=== PATIENT | male | born 1935 | race Caucasian/White ===

== ENCOUNTER → 2016-12-04 | Outpatient (CLI) | payer MEDICARE | END | disposition home or self-care (01) | LOC: PCVCCLINIC 13:16 | PROVIDERS: ATTEND Internal Medicine | DX: I25.10 Atherosclerotic heart disease of native coronary artery without angina pectoris (principal); I10 Essential (primary) hypertension; I25.5 Ischemic cardiomyopathy; E78.2 Mixed hyperlipidemia; J44.9 Chronic obstructive pulmonary disease, unspecified; E78.00 Pure hypercholesterolemia, unspecified; I65.29 Occlusion and stenosis of unspecified carotid artery; Z87.891 Personal history of nicotine dependence; Z79.82 Long term (current) use of aspirin; Z79.899 Other long term (current) drug therapy; Z88.0 Allergy status to penicillin; Z88.8 Allergy status to other drugs, medicaments and biological substances | CPT/HCPCS: 80061; 93005; G0463 ==

== ENCOUNTER → 2017-06-03 | Outpatient (CLI) | payer MEDICARE | END | disposition home or self-care (01) | LOC: PCVCCLINIC 10:55 | PROVIDERS: ATTEND Internal Medicine | DX: I25.10 Atherosclerotic heart disease of native coronary artery without angina pectoris (principal); I25.5 Ischemic cardiomyopathy; I10 Essential (primary) hypertension; E78.5 Hyperlipidemia, unspecified; I65.23 Occlusion and stenosis of bilateral carotid arteries; J43.1 Panlobular emphysema; Z87.891 Personal history of nicotine dependence; Z79.82 Long term (current) use of aspirin; Z79.899 Other long term (current) drug therapy | CPT/HCPCS: 80061; 93005; G0463 ==

== ENCOUNTER → 2017-12-02 | Outpatient (CLI) | payer MEDICARE | END | disposition home or self-care (01) | LOC: PCVCCLINIC 11:40 | DX: I25.10 Atherosclerotic heart disease of native coronary artery without angina pectoris (principal); I25.5 Ischemic cardiomyopathy; I10 Essential (primary) hypertension; E78.5 Hyperlipidemia, unspecified; I65.23 Occlusion and stenosis of bilateral carotid arteries; J43.1 Panlobular emphysema; Z79.82 Long term (current) use of aspirin; Z87.891 Personal history of nicotine dependence; Z88.8 Allergy status to other drugs, medicaments and biological substances | CPT/HCPCS: 80061; 93005; G0463 ==

== ENCOUNTER → 2018-12-03 | Outpatient (CLI) | payer MEDICARE ==
--- NOTE | 2018-12-03 12:30 | PCVCIMAG ---
APPROVED REPORT Study performed: 12/03/2018 11:42:53 EXAM: Comprehensive 2D, Doppler, and color-flow Echocardiogram Patient Location: Echo lab Status: routine BSA: 1.98 HR: 62 bpmBP: 158/100 mmHg Rhythm: NSR Other Information Study Quality: Good Risk Factors: Cardiac Risk Factors: HTN, Hyperlipidemia Indications CAD Cardiomyopathy Hypertension/HDD 2D Dimensions IVSd: 12.19 (7-11mm)LVOT Diam: 20.90 (18-24mm) LVDd: 50.88 mm PWd: 12.39 (7-11mm)Ascending Ao: 40.15 (22-36mm) LVDs: 46.86 (25-40mm) Left Atrium: 36.64 (27-40mm) Aortic Root: 34.31 mm LV Single Plane 4CH: 40.50 % LV Single Plane 2CH: 31.15 % Biplane EF: 37.4 % Volumes Left Atrial Volume (Systole) Single Plane 4CH: 103.52 mLSingle Plane 2CH: 96.68 mL LA ESV Index: 54.00 mL/m2 Aortic Valve AoV Peak Jay.: 1.31 m/s AO Peak Gr.: 6.91 mmHgLVOT Max P.67 mmHg LVOT Max V: 0.96 m/s RAJEEV Vmax: 2.50 cm2 Mitral Valve E/A Ratio: 1.7 MV Decel. Time: 298.07 ms MV E Max Jay.: 0.62 m/s MV A Jay.: 0.37 m/s TDI E/Lateral E': 8.86E/Medial E': 12.40 Medial E' Jay.: 0.05 m/s Lateral E' Jay.: 0.07 m/s Pulmonary Valve PV Peak Gr.: 2.01 mmHg Pulmonary Vein P Vein S: 0.61 m/sP Vein A: 0.37 m/s P Vein D: 0.54 m/sP Vein A Dur.: 117.6 msec P Vein S/D Ratio: 1.13 Tricuspid Valve TR Peak Jay.: 3.03 m/s TR Peak Gr.: 36.81 mmHg Left Ventricle The left ventricle is normal size. There is normal left ventricular wall thickness. Left ventricular systolic function is moderately decreased. LVEF is 40%. Inferior wall hypokinesis Moderate diastolic dysfunction is present (pseudonormal filling). Right Ventricle The right ventricle is normal size. The right ventricular systolic function is normal. Atria Left atrium is mildly dilated. Right atrium is mildly dilated. Aortic Valve The aortic valve is mildly calcified. Trace aortic regurgitation. There is no aortic valvular stenosis. Mitral Valve The mitral valve is normal in structure. Trace mitral regurgitation. No evidence of mitral valve stenosis. Tricuspid Valve The tricuspid valve is normal in structure. Trace to mild tricuspid regurgitation. Pulmonic Valve The pulmonary valve is normal in structure. Pulmonary artery pressure 45 mmHg There is no pulmonic valvular regurgitation. Great Vessels The aortic root is normal in size. 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 IVC is normal in size and collapses >50% with inspiration. Pericardium There is no pericardial effusion. <Conclusion> Left ventricular systolic function is moderately decreased. LVEF is 40%. Inferior wall hypokinesis Moderate diastolic dysfunction Left atrium is mildly dilated. Aortic vavle is mildly calcified. Trace aortic regurgitation, no stenosis. The mitral valve is normal in structure. Trace mitral regurgitation. The pulmonary valve is normal in structure. 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 There is no pericardial effusion.
--- NOTE | 2018-12-03 12:57 | PCVCIMAG ---
EXAM: AORTOILIAC DUPLEX INDICATION: Abdominal aortic aneurysm. FINDINGS: AORTA: Suprarenal aorta measures maximum diameter of 3.1 cm. There is a fusiform infrarenal aortic aneurysm. The infrarenal aorta measures maximum diameter of 3.2 x 3.5 cm. No aortic stenosis. RIGHT COMMON ILIAC ARTERY: Maximum diameter is 0.8 cm. No significant stenosis. RIGHT EXTERNAL ILIAC ARTERY: No significant stenosis. LEFT COMMON ILIAC ARTERY: Maximum diameter is 1.0 cm. No significant stenosis. LEFT EXTERNAL ILIAC ARTERY: No significant stenosis. IMPRESSION: 3.5 cm infrarenal abdominal aortic aneurysm. LOC:[id number]
== END | disposition home or self-care (01) ==
LOC: PCVCIMAG 10:47
PROVIDERS: ATTEND Internal Medicine
DX: I25.10 Atherosclerotic heart disease of native coronary artery without angina pectoris (principal); I25.5 Ischemic cardiomyopathy; I10 Essential (primary) hypertension; E78.5 Hyperlipidemia, unspecified; J43.1 Panlobular emphysema; I65.23 Occlusion and stenosis of bilateral carotid arteries; I71.4 Abdominal aortic aneurysm, without rupture; M19.90 Unspecified osteoarthritis, unspecified site; Z87.891 Personal history of nicotine dependence
CPT/HCPCS: 36415; 80061; 93005; 93306; 93978; G0463